=== PATIENT | male | born 1990 | race Caucasian/White ===

== ENCOUNTER 2019-03-21 11:56 | Emergency (ER) | payer BC, SELFPAY ==
[2019-03-21] VITALS (27 sets, daily range): BP systolic 114–145; BP diastolic 70–84; PULSE 53–81; RESP 14–28; TEMP 36.9; O2SAT 97–100
--- NOTE | 2019-03-21 12:13 | W.ED.GENAD ---
Discharge Plan Disposition Patient Disposition: HOME Condition: Fair Discharge Details Chief Complaint: Trauma Clinical Impression: Multiple fractures of ribs, Contusion of left lung, Pneumothorax, Closed fracture distal radius and ulna Primary Care Provider: Arely Hendricks ED Provider: Andrew Lou Home Meds and New Rx's Prescriptions: New oxycodone-acetaminophen 5-325 mg tablet 1 tab PO Q8H PRN (Reason: pain) 3 Days Qty: 9 RF: 0 Continued omeprazole 20 MG capsule,delayed release(DR/EC) 40 mg PO DAILY RF: 0 fluticasone propion-salmeterol [Advair Diskus] 1 EACH blister with device 1 ea Inhalation BID RF: 0 cetirizine [Zyrtec] 10 MG tablet 10 mg PO PRNRF: 0 acyclovir 200 MG capsule 200 mg PO PRNRF: 0 albuterol sulfate 8.5 GM HFA aerosol inhaler 2 puff Inhalation PRNRF: 0 Discharge Instructions Instructions: Traumatic Pneumothorax (ED), How to Use an Incentive Spirometer (ED), Wrist Fracture in Adults (ED), Rib Fracture (ED), Pulmonary Contusion (ED), Against Medical Advice (ED) Additional Instructions: We have placed a referral for you for orthopedic follow-up this week. The orthopedic department will be contacting you to schedule this. We had recommended that you stay overnight for observation to ensure that you do not have worsening of your injuries which could be life-threatening. As you would like to go home, we encourage you to return if you change your mind, especially if your symptoms worsen. Concerning symptoms include shortness of breath, fever, worsening pain, weakness, fatigue, chest pain, lightheadedness or dizziness. Our surgeon who spoke with you will be ordering a follow-up chest x-ray upon your return here tomorrow and she will be reviewing this. Is very importantly return for that follow-up. Lastly, we would like you to follow-up with your primary care provider in the next 1 to 2 days for reevaluation. I have prescribed pain medication and it is very important that you do not drink alcohol with this, or operate machinery. Medical Decision Making Review of portable bedside chest x-ray does show some deformity of left lateral chest wall likely consistent with fracture of his lower ribs. I do not see a pneumothorax. Pelvic x-ray without pathology. C-collar placed on arrival. EKG shows no normal sinus rhythm, no ectopy, no ischemia. Patient refusing CTs initially, ultimately allowing for CT chest abdomen pelvis but not thoracic and lumbar pain. Head CT and C-spine CT read by radiologist as negative. CT chest abdomen and pelvis also without acute pathology aside from left 678 rib fractures, pulmonary contusion and tiny pneumothorax. Left wrist x-ray reveals comminuted nondisplaced distal radius fracture along with fracture of ulnar styloid as read by me. The radiologist is also looked at these images. Left wrist volar splint placed. Orthopedist consulted and will see patient in follow-up. [facility], recommends admission for observation here if we are comfortable doing so. I consulted her surgeon Dr. Dexter who was willing to do so and it did to see the patient. During that evaluation, patient states he does not want to stay due to insurance cost but is willing to return tomorrow for chest x-ray which she will order and review. He is encouraged to return at any point if his symptoms worsen in the interim. HAYDEN Moss presents for evaluation by private vehicle after he slid down a roof ,then fell 25 feet off the roof onto the ground. 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 Initially he reported no loss of consciousness. At the end of the visit he did admit to brief loss of consciousness shortly after falling. He does complain of left wrist pain and swelling as well as chest pain. He is awake and alert with a GCS of 15 and walked into the emergency department on his own. He has no known significant past medical history that he reports, no medications. He does report that he is not very willing to undergo evaluation given his insurance cost but will do so if we insist. General Date/Time Provider Initiated Documentation: 03/21/19 12:13. Related Data Home Medications Medication Instructions Recorded Confirmed acyclovir 200 mg PO PRN 06/11/14 06/11/14 albuterol sulfate 2 puff INHALATION PRN 06/11/14 06/11/14 cetirizine [Zyrtec] 10 mg PO PRN 06/11/14 06/11/14 fluticasone propion-salmeterol 1 ea INHALATION BID disk 06/21/14 [Advair Diskus] omeprazole 40 mg PO DAILY tab-cap 06/21/14 oxycodone-acetaminophen 1 tab PO Q8H PRN 3 Days #9 tab 03/21/19 Previous Rx's Medication Instructions Recorded oxycodone-acetaminophen 1 tab PO Q8H PRN 3 Days #9 tab 03/21/19 Allergies Allergy/AdvReac Type Severity Reaction Status Date / Time POLLEN Allergy Intermediate ITCHY Uncoded 06/20/14 09:23 EYES, SNEEZING General Stated Complaint: Trauma DESIRE: 2 Review of Systems Constitutional Denies chills, Denies fatigue, Denies fever(s) and Denies lethargy Eyes Denies loss of vision ENT Denies nasal congestion and Denies sore throat Cardiovascular Denies dyspnea Respiratory Denies cough and Denies dyspnea Gastrointestinal Denies abdominal pain, Denies nausea and Denies vomiting Musculoskeletal Denies back pain, Denies muscle weakness and Denies numbness Integumentary/Breasts Denies rash Neurologic Denies focal weakness, Denies loss of vision and Denies numbness Endocrine Denies fatigue Hematologic/Lymphatic Denies easy bruising PFSH Social History Smoking/Tobacco Use Status: Former Tobacco Use Alcohol Intake: current Drug use: Never Substance use type: marijuana Do you feel safe at home: Yes Do you feel safe in your relationship?: Yes Additional Social history: pt states that his falther is at [facility] with end stage pancreatic ca. Exam Const General: cooperative and healthy appearing Other: Covered in silver paint material. Appears in pain but otherwise no acute distress, speaking in complete sentences. He is splinting at times with his breathing. HENLA Head: normal to inspection Ears: hearing grossly normal bilaterally Eyes EOM: EOM intact bilaterally Neck Neck: normal visual inspection Resp Effort & Inspection: normal respiratory effort Auscultation: clear to auscultation bilaterally Cardio Rate: regular rate Rhythm: regular rhythm Heart Sounds: no murmurs GI Palpation: soft and nontender Back/Spine/Pelvis Other: Spine is nontender throughout. Pelvis stable. Skin General skin exam: no rashes or lesions noted Neuro General: alert, awake and oriented x3 Speech: speech normal Gait: normal gait Extrem General: normal to inspection Other: Tenderness and swelling of left distal forearm. Market tenderness left lateral inferior chest wall. Equal chest rise and fall. No flail chest. Course Vital Signs Temperature 36.9 C 03/21/19 12:04 Pulse 59 L 03/21/19 12:04 Respiratory Rate 16 03/21/19 12:04 Blood Pressure 114/70 03/21/19 12:04 Pulse Oximetry 100 03/21/19 12:04 Temperature 36.9 C 03/21/19 12:04 Temperature Source Temporal Artery Scan 03/21/19 12:04 Pulse 59 L 03/21/19 12:04 Respiratory Rate 16 03/21/19 12:04 Blood Pressure 114/70 03/21/19 12:04 Blood Pressure Position Sitting 03/21/19 12:04 Pulse Oximetry 100 03/21/19 12:04 Oxygen Delivery Method Room Air 03/21/19 12:04 Oxygen Flow Rate 0 03/21/19 12:04 Pain Level 6 03/21/19 12:04
--- NOTE | 2019-03-21 12:16 | DI.RAD_ITS ---
SYMPTOMS/DIAGNOSIS: FALL 25 FEET PORTABLE CHEST: Comparison is made with [id number]. The heart size is within normal limits. The lungs are suboptimally inflated but appear clear. No infiltrate, effusion or pneumothorax is seen. No rib fractures are identified. IMPRESSION: Negative portable chest. PELVIS: No fracture or dislocation is seen. The SI joints and pubic symphysis appear intact. The hip joint spaces are well maintained. IMPRESSION: Negative pelvis. LEFT WRIST: There is a fracture of the distal radius extending transversely as well as obliquely to the articular surface. There is a few millimeters of separation at the articular surface. There is also some impaction. The tip of the ulnar styloid is fractured. The carpal bones are intact. IMPRESSION: Comminuted intra-articular fracture of the distal radius.
--- NOTE | 2019-03-21 12:16 | DI.CT_ITS ---
SYMPTOMS/DIAGNOSIS: FALL FROM 25 FEET, LT LATERAL CHEST AND LUQ PAIN CT OF THE CERVICAL SPINE: There is no evidence of fracture or subluxation. The disc spaces are well maintained. No prevertebral soft tissue swelling is seen. IMPRESSION: Negative CT of the cervical spine. NONCONTRAST HEAD CT: No intracranial hemorrhage or skull fracture is seen. There is a small air fluid level in the left maxillary sinus. There is a nondisplaced fracture of the inferior wall of the left orbit. There is a minimal amount of mucosal thickening along the medial wall of the left maxillary sinus. Some mucous retention is seen at the floor of the right maxillary sinus. The globes appear intact. The mastoid air cells are clear. IMPRESSION: Nondisplaced fracture of the floor of the left orbit. CT OF THE CHEST, ABDOMEN AND PELVIS: Images were performed from the clavicles through the ischial tuberosities after IV contrast. There is a displaced fracture of the left sixth rib anteriorly. There are nondisplaced fractures of the left anterior seventh and eighth ribs. There is an adjacent contusion in the lingula. There is a tiny pneumothorax. A tiny amount of air is seen along the fractured ribs. No pleural or pericardial effusions are seen. No spinal fractures are identified. The pelvis appears intact. The heart and great vessels appear intact. The liver, spleen, kidneys, pancreas, adrenals and gallbladder as well as bowel are unremarkable. The prostate is not enlarged. The bladder is only mildly distended and there is apparent wall thickening. There are no pelvic fractures. There is no free air or free fluid. IMPRESSION: Fractures of the left sixth through eighth ribs and tiny left pneumothorax. Small linear contusion.
--- NOTE | 2019-03-21 12:22 | ED.GENADUL_ITS ---
Discharge Plan Disposition Patient Disposition: HOME Condition: Fair Discharge Details Chief Complaint: Trauma Clinical Impression: Multiple fractures of ribs, Contusion of left lung, Pneumothorax, Closed fracture distal radius and ulna Primary Care Provider: Arely Hendricks ED Provider: Andrew Lou Home Meds and New Rx's Prescriptions: New oxycodone-acetaminophen 5-325 mg tablet 1 tab PO Q8H PRN (Reason: pain) 3 Days Qty: 9 RF: 0 Continued omeprazole 20 MG capsule,delayed release(DR/EC) 40 mg PO DAILY RF: 0 fluticasone propion-salmeterol [Advair Diskus] 1 EACH blister with device 1 ea Inhalation BID RF: 0 cetirizine [Zyrtec] 10 MG tablet 10 mg PO PRNRF: 0 acyclovir 200 MG capsule 200 mg PO PRNRF: 0 albuterol sulfate 8.5 GM HFA aerosol inhaler 2 puff Inhalation PRNRF: 0 Discharge Instructions Instructions: Traumatic Pneumothorax (ED), How to Use an Incentive Spirometer (ED), Wrist Fracture in Adults (ED), Rib Fracture (ED), Pulmonary Contusion ( ED), Against Medical Advice (ED) Additional Instructions: We have placed a referral for you for orthopedic follow-up this week. The orthopedic department will be contacting you to schedule this. We had recommended that you stay overnight for observation to ensure that you do not have worsening of your injuries which could be life-threatening. As you would like to go home, we encourage you to return if you change your mind, especially if your symptoms worsen. Concerning symptoms include shortness of breath, fever, worsening pain, weakness, fatigue, chest pain, lightheadedness or dizziness. Our surgeon who spoke with you will be ordering a follow-up chest x- ray upon your return here tomorrow and she will be reviewing this. Is very importantly return for that follow-up. Lastly, we would like you to follow-up with your primary care provider in the next 1 to 2 days for reevaluation. I have prescribed pain medication and it is very important that you do not drink alcohol with this, or operate machinery. Medical Decision Making Review of portable bedside chest x-ray does show some deformity of left lateral chest wall likely consistent with fracture of his lower ribs. I do not see a pneumothorax. Pelvic x-ray without pathology. C-collar placed on arrival. EKG shows no normal sinus rhythm, no ectopy, no ischemia. Patient refusing CTs initially, ultimately allowing for CT chest abdomen pelvis but not thoracic and lumbar pain. Head CT and C-spine CT read by radiologist as negative. CT chest abdomen and pelvis also without acute pathology aside from left 678 rib fractures, pulmonary contusion and tiny pneumothorax. Left wrist x-ray reveals comminuted nondisplaced distal radius fracture along with fracture of ul camelia styloid as read by me. The radiologist is also looked at these images. Left wrist volar splint placed. Orthopedist consulted and will see patient in follow-up. [facility], recommends admission for observation here if we are comfortable doing so. I consulted her surgeon Dr. Dexter who was willing to do so and it did to see the patient. During that evaluation, patient states he does not want to stay due to insurance cost but is willing to return tomorrow for chest x-ray which she will order and review. He is encouraged to return at any point if his symptoms worsen in the interim. HAYDEN oMss presents for evaluation by private vehicle after he slid down a roof ,then fell 25 feet off the roof onto the ground. 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 Initially he reported no loss of consciousness. At the end of the visit he did admit to brief loss of consciousness shortly after falling. He does complain of left wrist pain and swelling as well as chest pain. He is awake and alert with a GCS of 15 and walked into the emergency department on his own. He has no known significant past medical history that he reports, no medications. He does report that he is not very willing to undergo evaluation given his insurance cost but will do so if we insist. General Date/Time Provider Initiated Documentation: 03/21/19 12:13 . Related Data Home Medications Medication Instructions Recorded Confirmed acyclovir 200 mg PO PRN 06/11/14 06/11/14 albuterol sulfate 2 puff INHALATION PRN 06/11/14 06/11/14 cetirizine [Zyrtec] 10 mg PO PRN 06/11/14 06/11/14 fluticasone propion-salmeterol 1 ea INHALATION BID disk 06/21/14 [Advair Diskus] omeprazole 40 mg PO DAILY tab-cap 06/21/14 oxycodone-acetaminophen 1 tab PO Q8H PRN 3 Days #9 tab 03/21/19 Previous Rx's Medication Instructions Recorded oxycodone-acetaminophen 1 tab PO Q8H PRN 3 Days #9 tab 03/21/19 Allergies Allergy/AdvReac Type Severity Reaction Status Date / Time POLLEN Allergy Intermediate ITCHY Uncoded 06/20/14 09:23 EYES, SNEEZING General Stated Complaint: Trauma DESIRE: 2 Review of Systems Constitutional Denies chills, Denies fatigue, Denies fever(s) and Denies lethargy Eyes Denies loss of vision ENT Denies nasal congestion and Denies sore throat Cardiovascular Denies dyspnea Respiratory Denies cough and Denies dyspnea Gastrointestinal Denies abdominal pain, Denies nausea and Denies vomiting Musculoskeletal Denies back pain, Denies muscle weakness and Denies numbness Integumentary/Breasts Denies rash Neurologic Denies focal weakness, Denies loss of vision and Denies numbness Endocrine Denies fatigue Hematologic/Lymphatic Denies easy bruising PFSH Social History Smoking/Tobacco Use Status: Former Tobacco Use Alcohol Intake: current Drug use: Never Substance use type: marijuana Do you feel safe at home: Yes Do you feel safe in your relationship?: Yes Additional Social history: pt states that his falther is at [facility] with end stage pancreatic ca. Exam Const General: cooperative and healthy appearing Other: Covered in silver paint material. Appears in pain but otherwise no acute distress, speaking in complete sentences. He is splinting at times with his breathing. HENNE Head: normal to inspection Ears: hearing grossly normal bilaterally Eyes EOM: EOM intact bilaterally Neck Neck: normal visual inspection Resp Effort & Inspection: normal respiratory effort Auscultation: clear to auscultation bilaterally Cardio Rate: regular rate Rhythm: regular rhythm Heart Sounds: no murmurs GI Palpation: soft and nontender Back/Spine/Pelvis Other: Spine is nontender throughout. Pelvis stable. Skin General skin exam: no rashes or lesions noted Neuro General: alert, awake and oriented x3 Speech: speech normal Gait: normal gait Extrem General: normal to inspection Other: Tenderness and swelling of left distal forearm. Market tenderness left lateral inferior chest wall. Equal chest rise and fall. No flail chest. Course Vital Signs Temperature 36.9 C 03/21/19 12:04 Pulse 59 L 03/21/19 12:04 Respiratory Rate 16 03/21/19 12:04 Blood Pressure 114/70 03/21/19 12:04 Pulse Oximetry 100 03/21/19 12:04 Temperature 36.9 C 03/21/19 12:04 Temperature Source Temporal Artery Scan 03/21/19 12:04 Pulse 59 L 03/21/19 12:04 Respiratory Rate 16 03/21/19 12:04 Blood Pressure 114/70 03/21/19 12:04 Blood Pressure Position Sitting 03/21/19 12:04 Pulse Oximetry 100 03/21/19 12:04 Oxygen Delivery Method Room Air 03/21/19 12:04 Oxygen Flow Rate 0 03/21/19 12:04 Pain Level 6 03/21/19 12:04
[2019-03-21 12:30] LABS: Abs Immature Grans 0.01 k/cumm (0.0-0.09); Absolute Basophil Count 0.04 k/cumm (0.0-0.2); Absolute Eosinophil Count 0.31 k/cumm (0.0-0.7); Absolute Lymphocyte Count 2.39 k/cumm (1.2-3.4); Absolute Monocyte Count 0.64 k/cumm (0.11-0.7); Absolute Neutrophil Count 4.23 k/cumm (1.2-6.7); Basophils % 0.5; Eosinophils % 4.1; HCT 43.2 % (40.0-50.0); HGB 14.6 g/dL (13.5-17.5); Immature Grans % 0.1; Lymphocytes % 31.4; Mean Corp. HGB Concentration 33.8 g/dL (32.0-36.0); Mean Corpuscular Hemoglobin 30.4 pg (27.0-33.0); Mean Corpuscular Volume 89.8 fL (80-95); Mean Platelet Volume 9.9 fL (8.0-11.0); Monocytes % 8.4; Neutrophils % 55.5; Platelet Count 294 x1000/uL (130-400); RBC 4.81 m/cumm (4.50-6.00); RBC Distribution Width 12.3 % (11.8-14.1); White Blood Cell Count 7.62 k/cumm (4.4-10.8)
[2019-03-21] MEDS: Normal Saline 1,000 ML 1000 ML IV (12:50)
[2019-03-21 12:56] LABS: ALT 46 U/L (12-78); AST 55 U/L (15-37); Albumin 4.1 g/dL (3.4-5.0); Alkaline Phosphatase 60 U/L (46-116); Anion Gap 13.1 mmol/L (3-11); BUN 11 mg/dL (7-18); Bilirubin, Total 0.6 mg/dL (0.2-1.0); CO2 23.9 mmol/L (21.0-32.0); Calcium 9.6 mg/dL (8.5-10.1); Chloride 104 mmol/L (98-107); Glucose 120 mg/dL (70-100); Potassium 4.1 mmol/L (3.5-5.1); Sodium 141 mmol/L (136-145); Total Protein 7.6 g/dL (6.4-8.2)
[2019-03-21] MEDS: Normal Saline Flush 10 ML SYR IVP (14:24)
[2019-03-21] MEDS: Omnipaque 350 MG/ML 100 ML BTL IJ (14:24)
--- NOTE | 2019-03-21 17:07 | W.SURGCON ---
Date of service: 03/21/19 Time of Service: 17:07 Assessment and Plan (1) Ribs, multiple fractures: Current visit: Yes Status: Acute Qualifiers: Encounter type: initial encounter Fracture type: closed Laterality: left Qualified Code(s): S22.42XA - Multiple fractures of ribs, left side, initial encounter for closed fracture (2) Lung contusion: Current visit: Yes Status: Acute The patient was advised that the safest option would be observation in the hospital. This would be for pain control and to ensure his saturations did not decline. The patient prefers to not be admitted. He will be discharged with pain medication and will return tomorrow morning for an outpatient chest x-ray. He was clearly advised to return for inadequate pain control or worsening shortness of breath. He is also advised to notify us for any new injuries or symptoms. Qualifiers: Encounter type: initial encounter Laterality: left Qualified Code(s): S27.321A - Contusion of lung, unilateral, initial encounter History of Present Illness Narrative: Patient fell 25 feet off roof today. Noted immediate left chest and left wrist pain. Did not strike head or lose consciousness immediately, but did pass out for about a minute related to having the wind knocked out of him. Denies abdominal pain or any other injuries. He presented to the emergency department where a CT scan of the chest abdomen and pelvis showed fractures of the left ribs 6 7 and 8. A very small left lung contusion and tiny pneumothorax was present. The area is contained to the site of the rib fractures. Incidental note is made of a normal-appearing spleen and liver. [facility] Social History Smoking/Tobacco Use Status: Former Tobacco Use Alcohol Intake: current Drug use: Never Substance use type: marijuana Do you feel safe at home: Yes Do you feel safe in your relationship?: Yes Additional Social history: pt states that his falther is at [facility] with end stage pancreatic ca. Exam Narrative Exam Narrative: The patient is alert and oriented. HEENT reveals equal pupils. He does have a small contusion on the bridge of his nose but no instability. There is no tenderness to palpation of his facial bones. His bite is intact. He has no cervical spine tenderness. Chest reveals focal tenderness on the left lateral ribs. There is no subcutaneous air. He has bilateral breath sounds although has some difficulty taking a deep breath. Abdomen is soft and nontender to palpation. Left wrist is slightly swollen and a splint is currently being applied. Results Last Vital Signs Temp 98.4 F 03/21/19 12:04 Pulse 65 03/21/19 15:31 Resp 18 03/21/19 15:40 BP 127/78 03/21/19 15:31 Pulse Ox 99 03/21/19 15:31 Labs : 03/21/19 12:15 03/21/19 12:15 Laboratory Results - last 24 hr 03/21/19 03/21/19 12:15 12:15 WBC 7.62 RBC 4.81 Hgb 14.6 Hct 43.2 MCV 89.8 MCH 30.4 MCHC 33.8 RDW 12.3 Plt Count 294 MPV 9.9 Immature Gran % 0.1 Neutrophils % 55.5 Lymphocytes % 31.4 Monocytes % 8.4 Eosinophils % 4.1 Basophils % 0.5 Absolute Neutrophils 4.23 Absolute Lymphocytes 2.39 Absolute Monocytes 0.64 Absolute Eosinophils 0.31 Absolute Basophils 0.04 Sodium 141 Potassium 4.1 Chloride 104 Carbon Dioxide 23.9 Anion Gap 13.1 H BUN 11 Creatinine 1.00 Estimated GFR/1.73 m2 >= 60.00 Glucose 120 H Calcium 9.6 Total Bilirubin 0.6 AST 55 H ALT 46 Alkaline Phosphatase 60 Total Protein 7.6 Albumin 4.1
--- NOTE | 2019-03-21 17:15 | SCONE_ITS ---
Date of service: 03/21/19 Time of Service: 17:07 Assessment and Plan (1) Ribs, multiple fractures: Current visit: Yes Status: Acute Qualifiers: Encounter type: initial encounter Fracture type: closed Laterality: left Qualified Code(s): S22.42XA - Multiple fractures of ribs, left side, initial encounter for closed fracture (2) Lung contusion: Current visit: Yes Status: Acute The patient was advised that the safest option would be observation in the hospital. This would be for pain control and to ensure his saturations did not decline. The patient prefers to not be admitted. He will be discharged with pain medication and will return tomorrow morning for an outpatient chest x-ray. He was clearly advised to return for inadequate pain control or worsening shortness of breath. He is also advised to notify us for any new injuries or symptoms. Qualifiers: Encounter type: initial encounter Laterality: left Qualified Code(s): S27.321A - Contusion of lung, unilateral, initial encounter History of Present Illness Narrative: Patient fell 25 feet off roof today. Noted immediate left chest and left wrist pain. Did not strike head or lose consciousness immediately, but did pass out for about a minute related to having the wind knocked out of him. Denies abdominal pain or any other injuries. He presented to the emergency department where a CT scan of the chest abdomen and pelvis showed fractures of the left ribs 6 7 and 8. A very small left lung contusion and tiny pneumothorax was present. The area is contained to the site of the rib fractures. Incidental note is made of a normal-appearing spleen and liver. [facility] Social History Smoking/Tobacco Use Status: Former Tobacco Use Alcohol Intake: current Drug use: Never Substance use type: marijuana Do you feel safe at home: Yes Do you feel safe in your relationship?: Yes Additional Social history: pt states that his falther is at [facility] [place] with end stage pancreatic ca. Exam Narrative Exam Narrative: The patient is alert and oriented. HEENT reveals equal pupils. He does have a small contusion on the bridge of his nose but no instability. There is no tenderness to palpation of his facial bones. His bite is intact. He has no cervical spine tenderness. Chest reveals focal tenderness on the left lateral ribs. There is no subcutaneous air. He has bilateral breath sounds although has some difficulty taking a deep breath. Abdomen is soft and nontender to palpation. Left wrist is slightly swollen and a splint is currently being applied. Results Last Vital Signs Temp 98.4 F 03/21/19 12:04 Pulse 65 03/21/19 15:31 Resp 18 03/21/19 15:40 BP 127/78 03/21/19 15:31 Pulse Ox 99 03/21/19 15:31 Labs : 03/21/19 12:15 03/21/19 12:15 Laboratory Results - last 24 hr 03/21/19 03/21/19 12:15 12:15 WBC 7.62 RBC 4.81 Hgb 14.6 Hct 43.2 MCV 89.8 MCH 30.4 MCHC 33.8 RDW 12.3 Plt Count 294 MPV 9.9 Immature Gran % 0.1 Neutrophils % 55.5 Lymphocytes % 31.4 Monocytes % 8.4 Eosinophils % 4.1 Basophils % 0.5 Absolute Neutrophils 4.23 Absolute Lymphocytes 2.39 Absolute Monocytes 0.64 Absolute Eosinophils 0.31 Absolute Basophils 0.04 Sodium 141 Potassium 4.1 Chloride 104 Carbon Dioxide 23.9 Anion Gap 13.1 H BUN 11 Creatinine 1.00 Estimated GFR/1.73 m2 >= 60.00 Glucose 120 H Calcium 9.6 Total Bilirubin 0.6 AST 55 H ALT 46 Alkaline Phosphatase 60 Total Protein 7.6 Albumin 4.1
== END 2019-03-21 17:11 | disposition home or self-care (01) ==
PROVIDERS: Emergency Provider Physician Assistant Medical; PCP Nurse Practitioner Family
DX: S22.42XA Multiple fractures of ribs, left side, initial encounter for closed fracture (principal); S27.321A Contusion of lung, unilateral, initial encounter; J93.9 Pneumothorax, unspecified; S52.592A Other fractures of lower end of left radius, initial encounter for closed fracture; S52.612A Displaced fracture of left ulna styloid process, initial encounter for closed fracture; W13.2XXA Fall from, out of or through roof, initial encounter; R55 Syncope and collapse
CPT/HCPCS: 25600; 36415; 74177; 80053; 90471; 93005; 96360; 99252; 99285; 70450; 71045; 71260; 72125; 72170; 73110; 85025; 93010; J3490; L3650

== ENCOUNTER 2019-03-22 12:47 | Outpatient (CLI) | payer BC, SELFPAY ==
--- NOTE | 2019-03-22 10:20 | DI.RAD_ITS ---
SYMPTOM/DIAGNOSIS; F/U PNEUMOTHORAX RIBS, MULTIPLE FRACTURES, LUNG CONTUSION S22.49XA, S27.329A PA AND LATERAL CHEST: Comparison is made with 21 March 2019 Rib fractures previously noted on the CT are not well demonstrated on plain film. No pneumothorax is seen. No air is seen outside the left chest wall. The heart size is normal. There is faint opacity seen consistent with the previously noted pulmonary contusion in the left lower lung field. No effusions are seen. IMPRESSION: Stable appearance of left pulmonary contusion. No pneumothorax.
== END 2019-03-22 13:07 ==
PROVIDERS: PCP Nurse Practitioner Family; Visit Provider Surgery
DX: S22.49XA Multiple fractures of ribs, unspecified side, initial encounter for closed fracture (principal); S27.329A Contusion of lung, unspecified, initial encounter
CPT/HCPCS: 71046

== ENCOUNTER 2019-04-05 15:02 | Outpatient (CLI) | payer BC, SELFPAY ==
--- NOTE | 2019-04-05 11:19 | DI.RAD_ITS ---
SYMPTOM/DIAGNOSIS: F/U LEFT WRIST: 04/05/19 Two views were obtained and show healing fracture of the distal radius and ulnar styloid with no gross interval change in alignment of fracture fragments in comparison to examination of March 21, 2019. There is increased callus formation at the radial fracture site.
== END 2019-04-05 15:22 ==
PROVIDERS: PCP Nurse Practitioner Family; Visit Provider Orthopaedic Surgery
DX: S52.592D Other fractures of lower end of left radius, subsequent encounter for closed fracture with routine healing (principal); S52.612D Displaced fracture of left ulna styloid process, subsequent encounter for closed fracture with routine healing
CPT/HCPCS: 73100

== ENCOUNTER 2020-07-30 20:32 | Outpatient (REF) | payer BC, SELFPAY ==
[2020-07-30 18:33] LABS: HCT 47.4 % (40.0-50.0); HGB 15.4 g/dL (13.5-17.5); MCH 29.3 pg (27.0-33.0); MCHC 32.5 % (32.0-36.0); MCV 90.1 fL (80-95); MPV 10.8 fL (8.0-11.0); Platelet Count 210 10^3/uL (130-400); RBC 5.26 10^6/uL (4.36-5.78); RDW 11.6 % (11.8-14.1); RDW-SD 38.1 fL; WBC 6.87 10^3/uL (4.4-10.8)
[2020-07-30 19:08] LABS: ALT 28 U/L (16-63); AST 20 U/L (15-37); Albumin 4.4 g/dL (3.4-5.0); Alkaline Phosphatase 60 U/L (46-116); Anion Gap 5.6 mmol/L (3-11); BUN 12 mg/dL (7-18); Bilirubin, Total 0.7 mg/dL (0.2-1.0); CO2 30.4 mmol/L (21.0-32.0); CREATININE 1.08 mg/dL (0.70-1.30); Calcium 9.6 mg/dL (8.5-10.1); Calculated LDL 152 mg/dL (<100); Chloride 101 mmol/L (98-107); Cholesterol 231 mg/dL (<200); Glucose 96 mg/dL (74-106); HDL Cholesterol 65 mg/dL (40-60); Potassium 4.5 mmol/L (3.5-5.1); Sodium 137 mmol/L (136-145); Total Protein 7.8 g/dL (6.4-8.2); Triglyceride 71 mg/dL (<150)
[2020-07-30 22:41] LABS: Amylase 66 U/L (25-115)
== END 2020-07-30 20:52 ==
LOC: NCHCN 20:32
PROVIDERS: PCP Nurse Practitioner Family; Visit Provider Nurse Practitioner Family
DX: B37.0 Candidal stomatitis (principal); Z72.89 Other problems related to lifestyle
CPT/HCPCS: 80053; 80061; 85027; 82150

== ENCOUNTER 2020-08-27 21:21 | Outpatient (REF) | payer BC, SELFPAY ==
[2020-08-28 23:05] LABS: Patient Race White; SARS-CoV-2 RNA Undetected (Undetected); SARS-CoV-2 Specimen Source Nasal
== END 2020-08-27 21:41 ==
LOC: NCHCN 21:21
PROVIDERS: PCP Nurse Practitioner Family; Visit Provider Nurse Practitioner Family
DX: Z20.828 Contact with and (suspected) exposure to other viral communicable diseases (principal)
CPT/HCPCS: U0003

== ENCOUNTER 2024-10-27 17:38 | Outpatient (REF) | payer BC, SELFPAY ==
[2024-10-27 16:14] LABS: ALT 34 U/L (16-63); AST 24 U/L (15-37); Albumin 4.2 g/dL (3.4-5.0); Alkaline Phosphatase 75 U/L (46-116); Anion Gap 8.7 mmol/L (3-11); BUN 12 mg/dL (7-18); Bilirubin, Total 0.63 mg/dL (0.2-1.0); CO2 27.3 mmol/L (21.0-32.0); CREATININE 1.1 mg/dL (0.70-1.30); Calcium 9.8 mg/dL (8.5-10.1); Calculated LDL 172 mg/dL (<100); Chloride 106 mmol/L (98-107); Cholesterol 250 mg/dL (<200); Estimated GFR 89.78 (mL/min/1.73m2); Glucose 97 mg/dL (74-106); HDL Cholesterol 65 mg/dL (40-60); Potassium 5.2 mmol/L (3.5-5.1); Sodium 142 mmol/L (136-145); Total Protein 7.7 g/dL (6.4-8.2); Triglyceride 66 mg/dL (<150)
== END 2024-10-27 17:39 | disposition home or self-care (01) ==
LOC: NCHCN 17:38
PROVIDERS: PCP Nurse Practitioner Family; Visit Provider Nurse Practitioner Family
DX: E78.5 Hyperlipidemia, unspecified (principal); Z00.00 Encounter for general adult medical examination without abnormal findings
CPT/HCPCS: 80053; 80061